=== PATIENT | female | born 2000 | race Caucasian/White ===

== ENCOUNTER 2023-11-22 21:42 | Emergency (ER) | payer SELFPAY ==
[~2023-11-22] VITALS: Ht 167.6 cm; Wt 90.0 kg
[2023-11-22 21:48] VITALS: TEMP 98.2
[2023-11-22] MEDS ORDERED: hydrOXYzine HCl 25 MG TAB PO ONE (22:30)
[2023-11-22] MEDS ORDERED: Acetaminophen 325 MG TAB PO ONE (22:30)
[2023-11-22 22:42] LABS: HEMATOCRIT 41.3 % (37.0-47.0); HEMOGLOBIN 13.3 g/dl (12.5-16.0); MEAN CELL VOLUME 85 fl (80.0-100.0); MEAN CORPUSCULAR HEMOGLOBIN 27 pg (27-31); MEAN CORPUSCULAR HGB CONC 32 g/dl (33.0-37.0); PLATELET COUNT 320 K/mm3 (130-400); RED BLOOD COUNT 4.85 M/mm3 (4.10-5.30); REDCELL DISTRIBUTION WIDTH-CV 12.5 % (11.5-14.5)
[2023-11-22 22:48] LABS: COLLECTION METHOD CLEAN CATCH
[2023-11-22 22:58] LABS: ALANINE AMINOTRANSFERASE 19 U/L (0-55); ALBUMIN 4.2 gm/dL (3.5-5.0); ALCOHOL(ethanol),MEDICAL 37 mg/dL (0-10); ALKALINE PHOSPHATASE 81 U/L (40-150); ANION GAP 14 mmol/L (7-16); AST,SGOT 16 U/L (5-34); BILIRUBIN,TOTAL 0.2 mg/dL (0.2-1.2); BLOOD UREA NITROGEN 11 mg/dL (7-19); C-REACTIVE PROTEIN 0.15 mg/dL (0.00-0.50); CALCIUM 9.2 mg/dL (8.4-10.2); CARBON DIOXIDE 18 mmol/L (22-29); CHLORIDE 110 mmol/L (98-107); CREATININE, serum 0.73 mg/dL (0.57-1.11); GLUCOSE 87 mg/dL (70-99); LIPASE 39 U/L (8-78); POTASSIUM 3.4 mmol/L (3.5-4.5); SODIUM 142 mmol/L (136-145); TOTAL PROTEIN 8.1 gm/dL (6.2-8.1)
[2023-11-22 23:04] LABS: TRICYCLIC ANTIDEPRESS URINE NEGATIVE (NEGATIVE)
[2023-11-22 23:07] LABS: TROPONIN-I < 0.010 ng/mL (0.00-0.033)
[2023-11-22 23:11] LABS: URINE APPEARANCE Clear (CLEAR/HAZY); URINE COLOR Yellow (YELLOW)
[2023-11-22 23:12] LABS: PH 6.5 (5.0-8.5); URINE BLOOD Negative (NEGATIVE); URINE GLUCOSE Negative (NEGATIVE); URINE KETONE Negative (NEGATIVE); URINE NITRATE Negative (NEGATIVE); URINE PROTEIN(semi-quant) Negative (NEGATIVE); URINE UROBILINOGEN 0.2 E.U/dL (0.2-1.0)
[2023-11-22 23:13] LABS: URINE BACTERIA Rare /hpf (NONE SEEN); URINE RBC None Seen /hpf (0-2)
[2023-11-23] MEDS ORDERED: ATARAX 25MG25 MG/TAB PO (00:21)
[2023-11-23 00:40] LABS: BAND 4 % (0-10); LYMPHOCYTE 51 % (20.0-51.0); NEUTROPHILS 37 % (42.0-75.2); PLATELET ESTIMATE NORMAL (NORMAL)
[2023-11-23 00:43] VITALS: BP 137/85; PULSE 62
== END 2023-11-23 00:46 | disposition home or self-care (01) ==
LOC: COL.ER 21:42
PROVIDERS: Nurse Practitioner Primary Care
DX: R07.89 Other chest pain (principal)

== ENCOUNTER → 2024-01-18 | Outpatient (CLI) | payer SELFPAY ==
[~2024-01-18] MED LIST: ATARAX 25MG25 MG/TAB PO
== END ==
LOC: COL.CARD 11:59 → COL.VAS 11:59
DX: R00.2 Palpitations (principal); R07.2 Precordial pain

== ENCOUNTER 2024-06-27 20:40 | Emergency (ER) | payer OTHER ==
[~2024-06-27] VITALS: Ht 167.6 cm; Wt 76.8 kg
[2024-06-27 20:47] VITALS: TEMP 98.5
[2024-06-27] MEDS ORDERED: ATARAX 25MG25 MG/TAB PO (22:12)
[2024-06-27 22:19] VITALS: BP 142/84; PULSE 70
== END 2024-06-27 22:19 | disposition home or self-care (01) ==
LOC: COL.ER 20:40
DX: R07.89 Other chest pain (principal)

== ENCOUNTER 2024-06-29 11:44 | Emergency (ER) | payer OTHER ==
[2024-06-29 11:48] VITALS: TEMP 97
[2024-06-29 12:17] LABS: BASO # 0.1 K/mm3 (0.0-0.2); BASO % 0.9 % (0.0-2.0); EOS # 0.1 K/mm3 (0.0-0.7); EOS % 1.6 % (0.0-4.0); GRAN # 3.1 K/mm3 (1.4-6.5); GRAN % 41.3 % (42.2-75.2); HEMATOCRIT 41.5 % (37.0-47.0); HEMOGLOBIN 13.5 g/dl (12.5-16.0); LYMPH # 3.3 K/mm3 (1.2-3.4); LYMPH % 44.9 % (20.0-51.0); MEAN CELL VOLUME 84 fl (80.0-100.0); MEAN CORPUSCULAR HEMOGLOBIN 27 pg (27-31); MEAN CORPUSCULAR HGB CONC 33 g/dl (33.0-37.0); MONO # 0.8 K/mm3 (0.1-0.6); MONO % 11.2 % (1.7-9.3); PLATELET COUNT 322 K/mm3 (130-400); RED BLOOD COUNT 4.95 M/mm3 (4.10-5.30); REDCELL DISTRIBUTION WIDTH-CV 13.8 % (11.5-14.5)
[2024-06-29] MEDS ORDERED: Famotidine 20 MG TAB PO ONE (12:30)
[2024-06-29] MEDS ORDERED: Ketorolac 30 MG/ML VIAL IV ONE (12:30)
[2024-06-29] MEDS ORDERED: Morphine 4 MG/ML VIAL IV ONE (12:30)
[2024-06-29 12:38] LABS: BILIRUBIN,TOTAL 0.2 mg/dL (0.2-1.2); CREATININE, serum 0.72 mg/dL (0.57-1.11); POTASSIUM 3.4 mEq/L (3.5-4.5); TOTAL PROTEIN 7.9 g/dl (6.2-8.1)
[2024-06-29 12:45] LABS: TROPONIN-I 0.028 ng/mL (0.00-0.033)
[2024-06-29 14:23] VITALS: BP 130/98; PULSE 58
== END 2024-06-29 14:22 | disposition home or self-care (01) ==
LOC: COL.ER 11:44
PROVIDERS: Emergency Medicine
DX: R07.89 Other chest pain (principal)
CPT/HCPCS: J1885; J2270